=== PATIENT | female | born 1990 | race Caucasian/White ===

== ENCOUNTER 2017-06-12 07:50 | Day surgery (SDC) | payer OTHER ==
[~2017-06-12] VITALS: Ht 177.8 cm; Wt 59.5 kg
[~2017-06-12 07:50] MED LIST: ALBU90OI INH; Amoxicillin500 MG PO; BENZ100A PO; Bactrim Ds Tab1 EACH PO; CYCL10 PO; Cipro500 MG PO; HYDACE5 PO; IBUP600 PO; Naprosyn500 MG PO; PHENA200 PO; Percocet 5-3251 EACH PO; Pyridium200 MG PO; SULTRIDS PO; Tamiflu75 MG PO; [UNRECOGNIZED DRUG - REMARK]
[2017-06-12] MEDS ORDERED: IBUP600 PO (08:42)
[2017-10-28] MEDS ORDERED: NITR100CA PO (10:30)
== END 2017-06-12 11:50 | disposition home or self-care (01) ==
LOC: ORSCSDS 07:50
PROVIDERS: Obstetrics & Gynecology
PROC: 0U5F4ZZ Destruction of Cul-de-sac, Percutaneous Endoscopic Approach (ICD-10-PCS; principal; 2017-06-12 09:00)
DX: N92.1 Excessive and frequent menstruation with irregular cycle (principal); N80.3 Endometriosis of pelvic peritoneum; R10.2 Pelvic and perineal pain; N94.6 Dysmenorrhea, unspecified; F17.210 Nicotine dependence, cigarettes, uncomplicated
CPT/HCPCS: J0171; J0690; J1100; J1885; J2250; J2405; J2550; J3010; J7120

== ENCOUNTER 2017-06-24 08:12 | Emergency (ER) | payer OTHER ==
[~2017-06-24] VITALS: Ht 177.8 cm; Wt 59.0 kg
[2017-06-24 09:47] LABS: Source, Urine Clean Catch
[2017-06-24 09:54] LABS: Bilirubin, Urine Neg (Neg); Blood, Urine 1+ (Neg); Glucose Qualitative, Urine Neg (Neg); Ketones, Urine Neg (Neg); Leukocyte Esterase, Urine Neg (Neg); Nitrite, Urine Neg (Neg); Protein, Urine Neg (Neg); Urobilinogen, Urine NORM (Normal)
[2017-06-24 09:59] LABS: BASOPHILS ABSOLUTE AUTO 0.07 K/mm3 (0.00-0.23); BASOPHILS PERCENT AUTO 1 % (0-2); EOSINOPHILS ABSOLUTE AUTO 0.54 K/mm3 (0.00-0.68); EOSINOPHILS PERCENT AUTO 5 % (0-6); Hematocrit 40.9 % (33.0-51.0); Hemoglobin 13.4 g/dL (11.5-16.0); IMMATURE GRAN ABSOLUTE AUTO 0.02 K/mm3 (0.00-0.10); IMMATURE GRAN PERCENT AUTO 0 % (0-1); LYMPHOCYTES ABSOLUTE AUTO 2.67 K/mm3 (0.84-5.20); LYMPHOCYTES PERCENT AUTO 23 % (21-46); MONOCYTES ABSOLUTE AUTO 0.57 K/mm3 (0.16-1.47); MONOCYTES PERCENT AUTO 5 % (4-13); Mean Corpuscular HGB 30.4 pg (26.0-34.0); Mean Corpuscular HGB Conc 32.8 g/dL (31.5-36.5); Mean Corpuscular Volume 93 fL (80-100); Mean Platelet Volume 10.4 fL (9.1-12.4); NEUTROPHILS ABSOLUTE AUTO 7.96 K/mm3 (1.96-9.15); NEUTROPHILS PERCENT AUTO 67 % (41-73); Platelet Count 248 K/mm3 (150-400); RDW Coefficient Variation 11.9 % (11.7-14.2); RDW Standard Deviation 40.7 fL (35.1-46.3); Red Blood Cell Count 4.41 M/mm3 (3.80-5.20); White Blood Cell Count 11.83 K/mm3 (4.00-11.30)
[2017-06-24 10:03] LABS: Appearance, Urine Clear (Clear); Color, Urine Yellow (P-Yellow)
[2017-06-24 10:05] LABS: Red Blood Cells, Urine 0-2 /hpf (0-2); White Blood Cells, Urine 0-2 /hpf (0-5)
[2017-06-24 10:06] LABS: Bacteria Mod /hpf; Mucus Light (0-Heavy); Squamous Epithelial Cells Mod /hpf (Few)
[2017-06-24 10:16] LABS: Alanine Aminotransfer (ALT/SGP 24 U/L (12-78); Albumin, Blood 4.5 g/dL (3.4-5.0); Albumin/Globulin Ratio 1.3 (0.8-1.8); Alk Phos 74 U/L (50-136); Anion Gap 9 mmol/L (6-16); Aspartate Aminotrans (AST/SGOT 11 U/L (12-37); Bilirubin, Total 0.6 mg/dL (0.1-1.0); Blood Urea Nitrogen 8 mg/dL (8-24); Bun/Creatinine Ratio 13.6 (12.0-20.0); CO2, Blood 25 mmol/L (21-32); Calcium, Blood 9.3 mg/dL (8.5-10.1); Chloride, Blood 106 mmol/L (98-108); Creatinine, Blood 0.59 mg/dL (0.40-1.00); Globulin, Blood 3.4 g/dL (2.2-4.0); Glomerular Filtration Rate >60 (60-); Glucose, Blood 89 mg/dL (70-99); Potassium, Blood 3.7 mmol/L (3.5-5.5); Sodium, Blood 140 mmol/L (136-145); Total Protein, Blood 7.9 g/dL (6.4-8.2)
[2017-06-24] MEDS ORDERED: Keflex500 MG PO (10:26)
[2017-10-28] MEDS ORDERED: NITR100CA PO (10:30)
== END 2017-06-24 10:29 | disposition home or self-care (01) ==
LOC: ER 08:12
PROVIDERS: Psychiatry & Neurology Psychiatry
DX: N39.0 Urinary tract infection, site not specified (principal); F17.200 Nicotine dependence, unspecified, uncomplicated; Z91.011 Allergy to milk products; Z88.5 Allergy status to narcotic agent
CPT/HCPCS: 36415; 80053; 81000; 81001; 81025; 85025; 87086; 99283

== ENCOUNTER 2017-07-16 08:07 | Emergency (ER) | payer OTHER ==
[~2017-07-16] VITALS: Ht 177.8 cm; Wt 60.8 kg
[~2017-07-16 08:07] MED LIST changes: +Keflex500 MG PO
[2017-07-16 09:09] LABS: Source, Urine Clean Catch
[2017-07-16 09:14] LABS: Bilirubin, Urine Neg (Neg); Blood, Urine 5+ (Neg); Glucose Qualitative, Urine Neg (Neg); Ketones, Urine Neg (Neg); Leukocyte Esterase, Urine Neg (Neg); Nitrite, Urine Neg (Neg); Protein, Urine Neg (Neg); Urobilinogen, Urine NORM (Normal)
[2017-07-16 09:25] LABS: BASOPHILS ABSOLUTE AUTO 0.03 K/mm3 (0.00-0.23); BASOPHILS PERCENT AUTO 1 % (0-2); EOSINOPHILS ABSOLUTE AUTO 0.25 K/mm3 (0.00-0.68); EOSINOPHILS PERCENT AUTO 4 % (0-6); Hematocrit 36.3 % (33.0-51.0); IMMATURE GRAN ABSOLUTE AUTO 0.01 K/mm3 (0.00-0.10); IMMATURE GRAN PERCENT AUTO 0 % (0-1); LYMPHOCYTES ABSOLUTE AUTO 1.75 K/mm3 (0.84-5.20); LYMPHOCYTES PERCENT AUTO 28 % (21-46); MONOCYTES ABSOLUTE AUTO 0.35 K/mm3 (0.16-1.47); MONOCYTES PERCENT AUTO 6 % (4-13); Mean Corpuscular HGB 30.8 pg (26.0-34.0); Mean Corpuscular HGB Conc 33.1 g/dL (31.5-36.5); Mean Corpuscular Volume 93 fL (80-100); Mean Platelet Volume 9.9 fL (9.1-12.4); NEUTROPHILS ABSOLUTE AUTO 3.98 K/mm3 (1.96-9.15); NEUTROPHILS PERCENT AUTO 62 % (41-73); Platelet Count 206 K/mm3 (150-400); RDW Coefficient Variation 12.1 % (11.7-14.2); RDW Standard Deviation 41.8 fL (35.1-46.3); Red Blood Cell Count 3.89 M/mm3 (3.80-5.20); White Blood Cell Count 6.37 K/mm3 (4.00-11.30)
[2017-07-16 09:34] LABS: Appearance, Urine Clear (Clear); Color, Urine Yellow (P-Yellow)
[2017-07-16 09:40] LABS: Squamous Epithelial Cells Mod /hpf (Few)
[2017-07-16 09:40] LABS: Alanine Aminotransfer (ALT/SGP 24 U/L (12-78); Albumin, Blood 3.9 g/dL (3.4-5.0); Albumin/Globulin Ratio 1.3 (0.8-1.8); Alk Phos 64 U/L (50-136); Anion Gap 7 mmol/L (6-16); Aspartate Aminotrans (AST/SGOT 16 U/L (12-37); Bilirubin, Total 0.5 mg/dL (0.1-1.0); Blood Urea Nitrogen 7 mg/dL (8-24); Bun/Creatinine Ratio 12.9 (12.0-20.0); CO2, Blood 24 mmol/L (21-32); Calcium, Blood 8.7 mg/dL (8.5-10.1); Chloride, Blood 111 mmol/L (98-108); Creatinine, Blood 0.54 mg/dL (0.40-1.00); Glomerular Filtration Rate >60 (60-); Glucose, Blood 88 mg/dL (70-99); Potassium, Blood 3.4 mmol/L (3.5-5.5); Sodium, Blood 142 mmol/L (136-145); Total Protein, Blood 6.9 g/dL (6.4-8.2)
[2017-07-16 09:47] LABS: Bacteria Not Seen /hpf; White Blood Cells, Urine Not Seen /hpf (0-5)
[2017-07-16 09:48] LABS: Amorphous Light (0-Heavy); Mucus Light (0-Heavy)
[2017-07-16] MEDS ORDERED: Ultram50 MG PO (10:36)
[2017-10-28] MEDS ORDERED: NITR100CA PO (10:30)
== END 2017-07-16 10:59 | disposition home or self-care (01) ==
LOC: ER 08:07
PROVIDERS: Emergency Medicine
DX: N80.9 Endometriosis, unspecified (principal); F17.210 Nicotine dependence, cigarettes, uncomplicated; Z88.5 Allergy status to narcotic agent; Z91.011 Allergy to milk products
CPT/HCPCS: 36415; 80053; 81001; 81025; 85025; 96361; 96374; 96375; 99283; J1170; J1885; J2405; J7030

== ENCOUNTER → 2017-09-21 | Outpatient (CLI) | payer OTHER ==
[~2017-09-21] MED LIST changes: +Ultram50 MG PO
[2017-09-21 11:37] LABS: Source, Urine Clean Catch
[2017-09-21 12:48] LABS: Bilirubin, Urine Neg (Neg); Blood, Urine 1+ (Neg); Glucose Qualitative, Urine Neg (Neg); Ketones, Urine Neg (Neg); Leukocyte Esterase, Urine 2+ (Neg); Nitrite, Urine Pos (Neg); Protein, Urine Neg (Neg); Urobilinogen, Urine 1+ (Normal)
[2017-09-21 13:06] LABS: Appearance, Urine Cloudy (Clear); Color, Urine Yellow (P-Yellow)
[2017-09-21 13:08] LABS: Squamous Epithelial Cells Few /hpf (Few)
[2017-09-21 13:09] LABS: Bacteria Mod /hpf; White Blood Cells, Urine 25-50 /hpf (0-5)
== END ==
LOC: LAB SHORT 10:20 → LAB 10:20
PROVIDERS: Physician Assistant
DX: R35.0 Frequency of micturition (principal); R39.15 Urgency of urination
CPT/HCPCS: 81001; 87077; 87086; 87186

== ENCOUNTER 2017-10-30 07:35 | Day surgery (SDC) | payer OTHER ==
[2017-10-28 13:14] LABS: Hematocrit 38.5 % (33.0-51.0); Hemoglobin 12.7 g/dL (11.5-16.0); Mean Corpuscular HGB 30.4 pg (26.0-34.0); Mean Corpuscular Volume 92 fL (80-100); Mean Platelet Volume 10.4 fL (9.1-12.4); Platelet Count 215 K/mm3 (150-400); RDW Coefficient Variation 11.8 % (11.7-14.2); RDW Standard Deviation 39.6 fL (35.1-46.3); Red Blood Cell Count 4.18 M/mm3 (3.80-5.20); White Blood Cell Count 9.05 K/mm3 (4.00-11.30)
[~2017-10-30] VITALS: Ht 175.3 cm; Wt 68.5 kg
[~2017-10-30 07:35] MED LIST changes: +NITR100CA PO
[2017-10-31 04:28] LABS: BASOPHILS ABSOLUTE AUTO 0.02 K/mm3 (0.00-0.23); BASOPHILS PERCENT AUTO 0 % (0-2); EOSINOPHILS ABSOLUTE AUTO 0.17 K/mm3 (0.00-0.68); EOSINOPHILS PERCENT AUTO 2 % (0-6); Hematocrit 29.2 % (33.0-51.0); Hemoglobin 9.7 g/dL (11.5-16.0); IMMATURE GRAN ABSOLUTE AUTO 0.04 K/mm3 (0.00-0.10); IMMATURE GRAN PERCENT AUTO 0 % (0-1); LYMPHOCYTES ABSOLUTE AUTO 1.88 K/mm3 (0.84-5.20); LYMPHOCYTES PERCENT AUTO 19 % (21-46); MONOCYTES ABSOLUTE AUTO 0.43 K/mm3 (0.16-1.47); MONOCYTES PERCENT AUTO 4 % (4-13); Mean Corpuscular HGB 30.4 pg (26.0-34.0); Mean Corpuscular HGB Conc 33.2 g/dL (31.5-36.5); Mean Corpuscular Volume 92 fL (80-100); Mean Platelet Volume 10.3 fL (9.1-12.4); NEUTROPHILS ABSOLUTE AUTO 7.64 K/mm3 (1.96-9.15); NEUTROPHILS PERCENT AUTO 75 % (41-73); Platelet Count 155 K/mm3 (150-400); RDW Coefficient Variation 11.7 % (11.7-14.2); RDW Standard Deviation 39.4 fL (35.1-46.3); Red Blood Cell Count 3.19 M/mm3 (3.80-5.20); White Blood Cell Count 10.18 K/mm3 (4.00-11.30)
[2017-10-31] MEDS ORDERED: DOCU100 PO (12:23)
[2017-10-31] MEDS ORDERED: IBUP800 PO (12:23)
[2017-10-31] MEDS ORDERED: Milk Of Ma400 MG/5 M PO (12:24)
[2017-10-31] MEDS ORDERED: PROM25 PO (12:25)
[2017-10-31] MEDS ORDERED: Percocet 5-3251 EACH PO (12:25)
[2017-10-31] MEDS ORDERED: SIME80CH PO (12:26)
== END 2017-10-31 12:51 | disposition home or self-care (01) ==
LOC: ORSCMMR 07:35 → ORD 09:00 → ORSCMMR 09:00 → SURS 13:26 → ORSCMMR 10-31 12:51
PROVIDERS: Obstetrics & Gynecology
PROC: 0UT0FZZ Resection of Right Ovary, Via Natural or Artificial Opening With Percutaneous Endoscopic Assistance (ICD-10-PCS; principal; 2017-10-30 09:00)
PROC: 0U5F4ZZ Destruction of Cul-de-sac, Percutaneous Endoscopic Approach (ICD-10-PCS; principal; 2017-10-30 09:00)
PROC: 0UT9FZZ Resection of Uterus, Via Natural or Artificial Opening With Percutaneous Endoscopic Assistance (ICD-10-PCS; principal; 2017-10-30 09:00)
PROC: 0UT7FZZ Resection of Bilateral Fallopian Tubes, Via Natural or Artificial Opening With Percutaneous Endoscopic Assistance (ICD-10-PCS; principal; 2017-10-30 09:00)
DX: N92.0 Excessive and frequent menstruation with regular cycle (principal); N80.3 Endometriosis of pelvic peritoneum; N94.6 Dysmenorrhea, unspecified; N83.201 Unspecified ovarian cyst, right side; R10.2 Pelvic and perineal pain; K66.0 Peritoneal adhesions (postprocedural) (postinfection); Z01.818 Encounter for other preprocedural examination; Z87.891 Personal history of nicotine dependence
CPT/HCPCS: 36415; 84703; 85025; 85027; 86850; 86900; 86901; 88307; J0171; J0690; J1885; J2250; J2405; J2765; J3010; J7030; J7120

== ENCOUNTER → 2019-11-26 | Outpatient (CLI) | payer OTHER ==
[~2019-11-26] MED LIST changes: +DOCU100 PO; +IBUP800 PO; +Milk Of Ma400 MG/5 M PO; +PROM25 PO; +SIME80CH PO
== END | disposition home or self-care (01) ==
LOC: LAB 09:15 → LAB SHORT 09:15
DX: R39.15 Urgency of urination (principal)
CPT/HCPCS: 87077; 87086; 87186

== ENCOUNTER 2020-11-09 07:21 | Day surgery (SDC) | payer OTHER ==
[~2020-11-09] VITALS: Ht 177.8 cm; Wt 65.7 kg
[~2020-11-09 07:21] MED LIST changes: +SUMA25 PO
[2020-11-09] MEDS ORDERED: MULVITA PO (07:49)
--- NOTE | 2020-11-09 09:00 | NUR ---
11/09/20 0900 Yasmin Ayala ABDOMEN PREPPED BY [facility].JAR.
--- NOTE | 2020-11-09 11:18 | NUR ---
11/09/20 1118 [place],Lori REGLAN GIVEN FOR NAUSEA. CO PAIN 2.DENIES NEED FOR PAIN MED. AT THIS TIME.
== END 2020-11-09 11:44 | disposition home or self-care (01) ==
LOC: ORSCSDS 07:21
PROVIDERS: Obstetrics & Gynecology
PROC: 0UT14ZZ Resection of Left Ovary, Percutaneous Endoscopic Approach (ICD-10-PCS; principal; 2020-11-09 08:30)
PROC: 0U5F4ZZ Destruction of Cul-de-sac, Percutaneous Endoscopic Approach (ICD-10-PCS; principal; 2020-11-09 08:30)
DX: N80.3 Endometriosis of pelvic peritoneum (principal); R10.2 Pelvic and perineal pain; N73.6 Female pelvic peritoneal adhesions (postinfective); F17.210 Nicotine dependence, cigarettes, uncomplicated
CPT/HCPCS: 88305; J0171; J0690; J1100; J1885; J2250; J2405; J2704; J2765; J3010; J7120

== ENCOUNTER 2022-07-28 13:59 | Emergency (ER) | payer OTHER ==
[~2022-07-28] VITALS: Ht 177.8 cm; Wt 63.5 kg
[~2022-07-28 13:59] MED LIST changes: +HYDHCL25 PO; +MULVITA PO
== END 2022-07-28 17:00 | disposition home or self-care (01) ==
LOC: ER 13:59
DX: M54.50 Low back pain, unspecified (principal); F17.210 Nicotine dependence, cigarettes, uncomplicated
CPT/HCPCS: 96372; 99283-25; J1885

== ENCOUNTER 2022-08-04 18:59 | Emergency (ER) | payer OTHER ==
[~2022-08-04] VITALS: Ht 177.8 cm; Wt 63.5 kg
== END 2022-08-04 21:14 | disposition home or self-care (01) ==
LOC: ER 18:59
DX: M54.50 Low back pain, unspecified (principal); F17.210 Nicotine dependence, cigarettes, uncomplicated; Z79.899 Other long term (current) drug therapy
CPT/HCPCS: 93005; 93010; 99284-25

== ENCOUNTER 2022-10-18 08:06 | Emergency (ER) | payer OTHER ==
[~2022-10-18] VITALS: Ht 165.1 cm; Wt 56.7 kg
[2022-10-18] MEDS ORDERED: HYDR1TAB94 PO (11:53)
[2022-10-18] MEDS ORDERED: METPRE4DP PO (11:53)
[2022-10-18] MEDS ORDERED: IBUP600 PO (11:53)
[2022-10-18 12:10] VITALS: BP 100/77
== END 2022-10-18 12:11 | disposition home or self-care (01) ==
LOC: ER 08:06
DX: M54.16 Radiculopathy, lumbar region (principal); F17.210 Nicotine dependence, cigarettes, uncomplicated; Z91.011 Allergy to milk products; Z91.040 Latex allergy status; Z88.5 Allergy status to narcotic agent
CPT/HCPCS: 72100; 96372; 99283-25; A9270; J1100; J1885

== ENCOUNTER 2024-06-28 06:57 | Day surgery (SDC) | payer OTHER ==
[~2024-06-28] VITALS: Ht 180.3 cm; Wt 60.2 kg
[~2024-06-28 06:57] MED LIST changes: +HYDR1TAB94 PO; +METPRE4DP PO
[2024-06-28] MEDS ORDERED: Lactated Ringer's 1,000 ML IV ONE ×2 (07:34→08:34)
[2024-06-28] MEDS ORDERED: propofoL 50 ML IV ONE (07:34)
[2024-06-28 10:01] VITALS: BP 104/60
== END 2024-06-28 09:57 | disposition home or self-care (01) ==
LOC: ORSCSDS 06:57
PROVIDERS: Surgery
PROC: 0DJ08ZZ Inspection of Upper Intestinal Tract, Via Natural or Artificial Opening Endoscopic (ICD-10-PCS; principal; 2024-06-28 08:30)
PROC: 0DBB8ZX Excision of Ileum, Via Natural or Artificial Opening Endoscopic, Diagnostic (ICD-10-PCS; principal; 2024-06-28 08:30)
PROC: 0DBP8ZX Excision of Rectum, Via Natural or Artificial Opening Endoscopic, Diagnostic (ICD-10-PCS; principal; 2024-06-28 08:30)
DX: R10.9 Unspecified abdominal pain (principal); K92.1 Melena; K64.4 Residual hemorrhoidal skin tags; K64.0 First degree hemorrhoids; K44.9 Diaphragmatic hernia without obstruction or gangrene; Z86.0100 Personal history of colon polyps, unspecified; K57.90 Diverticulosis of intestine, part unspecified, without perforation or abscess without bleeding; F90.9 Attention-deficit hyperactivity disorder, unspecified type; F41.9 Anxiety disorder, unspecified; M79.7 Fibromyalgia; F17.210 Nicotine dependence, cigarettes, uncomplicated
CPT/HCPCS: 88305; J2704; J7120

== ENCOUNTER 2024-12-20 17:20 | Emergency (ER) | payer OTHER ==
[~2024-12-20] VITALS: Ht 180.3 cm; Wt 58.1 kg
[2024-12-20 17:26] VITALS: BP 122/63
[2024-12-20] MEDS ORDERED: RX Prepack 6 Tabs Oxycodone 5mg UD ONE (19:10)
[2024-12-20] MEDS ORDERED: Cyclobenzaprine5 MG PO (19:37)
== END 2024-12-20 19:37 | disposition home or self-care (01) ==
LOC: ER 17:20
DX: R07.81 Pleurodynia (principal); F17.210 Nicotine dependence, cigarettes, uncomplicated; Z91.011 Allergy to milk products
CPT/HCPCS: 71101; 99283-25; A9270